=== PATIENT | female | born 1990 | race Caucasian/White ===

== ENCOUNTER 2018-11-12 10:25 | Emergency (ER) | payer MEDICAID ==
[~2018-11-12] VITALS: Ht 157.5 cm; Wt 63.0 kg
[2018-11-12 10:33] VITALS: BP 139/78; PULSE 72; RESP 18; Ht 157.5 cm; Wt 63.0 kg
[2018-11-12] MEDS ORDERED: AZITHROMYCIN 500 MG TAB PO ONE (11:00)
[2018-11-12] MEDS ORDERED: CEFTRIAXONE 250 MG INJ IM ONE (11:00)
[2018-11-12] MEDS ORDERED: LIDOCAINE 1% (MDV) 20 ML INJ SC ONE (11:00)
[2018-11-12] MEDS ORDERED: ACET325T33 PO (11:04)
--- NOTE | 2018-11-12 11:09 | ERD ---
ER Documentation Chief Complaint Chief Complaint says pain during intercourse , also wants to be checked for std HPI 28-year-old female presented to the ED chief complaint of pain in urination. Patient states that she is been having unprotected sex and is worried she may have an STD. Patient denies any back pain fever chills nausea or vomiting, patient does not think she is and last menstrual cycle was 4 weeks ago. Patient denies any vaginal discharge or sores. Patient is not taking oral contraceptives. Patient denies any allergies to medications, patient denies any past medical history, surgical history ROS All systems reviewed and are negative except as per history of present illness. Medications Home Meds Active Scripts Acetaminophen* (Tylenol*) 325 Mg Tablet, 2 TAB PO Q6 PRN for PAIN AND OR ELEVATED TEMP, #20 TAB Prov:SADE WHITING PA-C 11/12/18 Allergies Allergies: Coded Allergies: No Known Allergy (Unverified , 05/16/16) PMhx/Soc History of Surgery: No Anesthesia Reaction: No Hx Neurological Disorder: No Hx Respiratory Disorders: No Hx Cardiac Disorders: No Hx Psychiatric Problems: Yes Hx Miscellaneous Medical Probl: No Hx Alcohol Use: Yes Hx Substance Use: Yes (Meth. ) Hx Tobacco Use: Yes FmHx Family History: No diabetes, No coronary disease, No other Physical Exam Vitals Vital Signs Date Temp Pulse Resp B/P (MAP) Pulse Ox O2 O2 Flow FiO2 Time Delivery Rate 11/12/18 98.1 72 18 139/78 99 10:33 (98) Physical Exam Const: No acute distress Head: Atraumatic Eyes: Normal Conjunctiva ENT: Normal External Ears, Nose and Mouth. Neck: Full range of motion. No meningismus. Resp: Clear to auscultation bilaterally Cardio: Regular rate and rhythm, no murmurs Abd: Soft, non tender, non distended. Normal bowel sounds Skin: No petechiae or rashes Back: No midline or flank tenderness Ext: No cyanosis, or edema Results 24 hrs Laboratory Tests Test 11/12/18 11:11 11/12/18 11:13 Urine Color STRAW Urine Clarity CLEAR Urine pH 7.0 Urine Specific [place] 1.016 Urine Ketones NEGATIVE mg/dL Urine Nitrite NEGATIVE mg/dL Urine Bilirubin NEGATIVE mg/dL Urine Urobilinogen NEGATIVE mg/dL Urine Leukocyte Esterase NEGATIVE Leelee/ul Urine Hemoglobin NEGATIVE mg/dL Urine Glucose NEGATIVE mg/dL Urine Total Protein NEGATIVE mg/dl POC Beta HCG, Qualitative NEGATIVE Current Medications Medications Dose Sig/Siri Start Time Status Last (Trade) Ordered Route PRN Stop Time Admin Dose Reason Admin Ceftriaxone 250 mg ONCE ONCE 11/12/18 DC 11/12/18 Sodium IM 11:00 11:09 (Rocephin) 11/12/18 11:02 1,000 mg ONCE ONCE 11/12/18 DC 11/12/18 Azithromycin PO 11:00 11:09 (Zithromax) 11/12/18 11:02 Lidocaine 20 ml ONCE ONCE 11/12/18 DC 11/12/18 (Xylocaine SC 11:00 11:09 1% (Mdv) 20 11/12/18 11:02 ml) Procedures/MDM ED course: STD screening UA Urine The patient was stable throughout the ED course. The patient and/or family informed of laboratory and diagnostic imaging results throughout the ED course. Medications given in ER: Ceftriaxone Azithromycin Patient tolerated medication well with no adverse reactions. Patient reported improvement in pain. Medical decision makin-year-old female presented to ED with dysuria and symptoms of painful intercourse, patient denies any vaginal discharge, vaginal bleeding, sores in her genital region. Patient states she has been present dissipating and risky sexual behavior and has had unprotected sex and she is not on any oral contraceptives. Patient states the symptoms have worsened over the past 3 weeks. Patient was treated empirically for gonorrhea chlamydia and a UA was sent out which was unremarkable for UTI, patient's urine was negative. Patient was advised that she needs to follow-up with her primary care provider regarding her treatment here in follow-up to get the results and that she was treated empirically for her symptoms and risky sexual behavior. Patient is agreement with the treatment plan and states that she is going to follow-up this week with her primary care provider or she will return tomorrow. At this time I have low suspicion for ectopic , ovarian torsion, PID, tubo-ovarian abscess, fibroids, endometriosis, vulvovaginitis, uterine prolapse, ovarian cancer, uterine cancer, nephrolithiasis, pyelonephritis, UTI, appendicitis, diverticulitis, bowel obstruction, perirectal abscess. Patient was informed to have no sexual intercourse until she is cleared from the infection with a follow-up visit with her primary care provider patient had no further questions upon discharge is in agreement to the treatment plan. Prescription for home: Discharge: At this time, patient is stable for discharge and outpatient management. I have instructed the patient to follow-up with his\her primary care physician in 1 to 2 days. I have discussed with the patient the possibility of needing to see a specialist for further work-up and imaging studies if symptoms persist. I have instructed the patient to promptly return to the ER for any new or worsening symptoms including increased pain, fever, nausea, vomiting, weakness or LOC. The patient and\or family expressed understanding of and agreement with this plan. All questions were answered. Home care instructions were provided. Disclaimer: Inadvertent spelling and grammatical errors are likely due to EHR\dictation so ftware use and do not reflect on the overall quality of patient care. Also, please note that the electronic time recorded on the note does not necessarily reflect the actual time of the patient encounter. Departure Diagnosis: Primary Impression: Dysuria Additional Impression: Screening for STD (sexually transmitted disease) Condition: Stable Patient Instructions: Dysuria, Std, Suspected (Culture Only) Referrals: [facility] YOU HAVE RECEIVED A MEDICAL SCREENING EXAM AND THE RESULTS INDICATE THAT YOU DO NOT HAVE A CONDITION THAT REQUIRES URGENT TREATMENT IN THE EMERGENCY DEPARTMENT. FURTHER EVALUATION AND TREATMENT OF YOUR CONDITION CAN WAIT UNTIL YOU ARE SEEN IN YOUR DOCTORS OFFICE WITHIN THE NEXT 1-2 DAYS. IT IS YOUR RESPONSIBILITY TO MAKE AN APPOINTMENT FOR FOLOW-UP CARE. IF YOU HAVE A PRIMARY DOCTOR --you should call your primary doctor and schedule an appointment IF YOU DO NOT HAVE A PRIMARY DOCTOR YOU CAN CALL OUR PHYSICIAN REFERRAL HOTLINE AT IF YOU CAN NOT AFFORD TO SEE A PHYSICIAN YOU CAN CHOSE FROM THE FOLLOWING [facility] [address] [facility] [address] [facility] [address] [facility] [address] [facility] [address] [facility]. [address] [facility] YOU HAVE RECEIVED A MEDICAL SCREENING EXAM AND THE RESULTS INDICATE THAT YOU DO NOT HAVE A CONDITION THAT REQUIRES URGENT TREATMENT IN THE EMERGENCY DEPARTMENT. FURTHER EVALUATION AND TREATMENT OF YOUR CONDITION CAN WAIT UNTIL YOU ARE SEEN IN YOUR DOCTORS OFFICE WITHIN THE NEXT 1-2 DAYS. IT IS YOUR RESPONSIBILITY TO MA KE AN APPOINTMENT FOR FOLOW-UP CARE. IF YOU HAVE A PRIMARY DOCTOR --you should call your primary doctor and schedule and appointment IF YOU DO NOT HAVE A PRIMARY DOCTOR YOU CAN CALL OUR PHYSICIAN REFERRAL HOTLINE AT . IF YOU CAN NOT AFFORD TO SEE A PHYSICIAN YOU CAN CHOSE FROM THE FOLLOWING [facility] INSTITUTIONS: [facility] [address] [place] [address] [facility] [address] [place] [address] [facility] [address] [place] [address] Additional Instructions: FOLLOW UP WITH YOUR PRIMARY CARE PHYSICIAN TOMORROW.Return to this facility if you are not improving as expected. SADE WHITING PA-C Nov 12, 2018 11:09
== END 2018-11-12 11:55 | disposition home or self-care (01) ==
LOC: FTE 10:25
DX: R30.0 Dysuria (principal); Z11.3 Encounter for screening for infections with a predominantly sexual mode of transmission; Z87.891 Personal history of nicotine dependence
CPT/HCPCS: 81003; 81025; 87086; 87591; 96372; J0696; Z7502; Z7610

== ENCOUNTER 2019-02-21 00:15 | Emergency (ER) | payer SELFPAY ==
[~2019-02-21] VITALS: Ht 160 cm; Wt 71.4 kg
[~2019-02-21 00:15] MED LIST: ACET325T33 PO
[2019-02-21 00:19] VITALS: BP 145/71; PULSE 90; RESP 20; Ht 160 cm; Wt 71.4 kg
== END 2019-02-21 01:58 | disposition left against medical advice (07) ==
LOC: FTE 00:15
DX: Z53.21 Procedure and treatment not carried out due to patient leaving prior to being seen by health care provider (principal)